=== PATIENT | female | born 1945 | race Caucasian/White ===

== ENCOUNTER → 2017-11-20 | Outpatient (CLI) | payer MEDICARE ==
[~2017-11-20] MED LIST: ASPI-496 PO; ATEN25TA PO; ATOR40TA PO; CHOL100012 PO; FLAX100016 PO; LORA10TA75 PO; MULT-224 PO; NIAC500C3 PO; OMEG1CAP24 PO; PREDNISOLONE EYE EACHEYE; RED600TA PO; VIT1CAPS6 PO; VIT1TABL32 PO; [UNRECOGNIZED DRUG - CODE] EACHEYE
== END | disposition home or self-care (01) ==
LOC: CFH 12:13
PROVIDERS: ATTEND Family Medicine
DX: Z12.31 Encounter for screening mammogram for malignant neoplasm of breast (principal); Z13.820 Encounter for screening for osteoporosis; N95.9 Unspecified menopausal and perimenopausal disorder; Z85.3 Personal history of malignant neoplasm of breast
CPT/HCPCS: 77063; 77080; 77067

== ENCOUNTER → 2019-12-05 | Outpatient (CLI) | payer MEDICARE ==
[~2019-12-05] MED LIST changes: -MULT-224 PO; +MULT-642 PO
== END | disposition home or self-care (01) ==
LOC: CVU 06:44
PROVIDERS: ATTEND Family Medicine
DX: I77.1 Stricture of artery (principal); I10 Essential (primary) hypertension; E78.2 Mixed hyperlipidemia
CPT/HCPCS: 93922

== ENCOUNTER → 2019-12-08 | Outpatient (CLI) | payer MEDICARE | END | disposition home or self-care (01) | LOC: CFH 07:37 | PROVIDERS: ATTEND Family Medicine | DX: Z12.31 Encounter for screening mammogram for malignant neoplasm of breast (principal); N95.9 Unspecified menopausal and perimenopausal disorder | CPT/HCPCS: 77063; 77067; 77080 ==